=== PATIENT | male | born 1995 | race Hispanic/Latino ===

== ENCOUNTER 2021-09-12 09:09 | Emergency (ER) | payer OTHER, SELFPAY ==
--- NOTE | ~2021-09-12 | XR_ITS ---
EXAMINATION: XR abdomen/kub 1V EXAM DATE: 09/12/2021 10:35 INDICATION: Possible kidney stone. Back pain . TECHNIQUE: Frontal projection(s) of the abdomen for interpretation. There is no prior study for odell warren. FINDINGS: There is expected amount of colonic stool and gas. No small bowel dilation, nonobstructi ve bowel gas pattern. There are no suspicious calcifications identified. There is no organomegaly suspected. The bones are unremarkable. IMPRESSION: Unremarkable abdomen x-ray exam. Reviewed, dictated and finalized at location A. IFIED WELDER
[2021-09-12 09:21] VITALS: BP 119/72; PULSE 76; RESP 18; TEMP 36.3; O2SAT 99
--- NOTE | 2021-09-12 10:12 | ED.BACK ---
HPI - Back Pain/Injury General Chief Complaint: Back Pain/Injury Stated Complaint: Back Pain Time Seen by Provider: 09/12/21 10:12 Source: patient and RN notes reviewed Mode of arrival: ambulatory Limitations: no limitations History of Present Illness HPI Narrative: 26-year-old male presents concern for left sided mid back pain. Reports the pain is consistently a 3/10. Reports the pain comes in waves and gets up to an 8/10. Denies any exacerbating or relieving factors. Denies injury or trauma. He denies any weakness in any extremity, perianal anesthesia, loss of bowel or bladder function. MD elicited complaint: back pain Related Data Home Medications Medication Instructions Recorded Confirmed acetaminophen-codeine 1 tablet PO DAILY PRN 09/12/21 09/12/21 chlorhexidine gluconate 0.12 applic PO DAILY PRN 09/12/21 09/12/21 ibuprofen 600 mg PO DAILY PRN 09/12/21 09/12/21 Allergies Allergy/AdvReac Type Severity Reaction Status Date / Time No Known Allergies Allergy Verified 09/12/21 10:00 Review of Systems Review of Systems: CONSTITUTIONAL: Denies malaise, chills, sweats, or fever. CARDIOVASCULAR: Denies chest pain, palpitations, or edema. RESPIRATORY: Denies cough or dyspnea. GASTROINTESTINAL: Denies abdominal pain, nausea, vomiting, diarrhea, bloody, or mucous stools. GENITOURINARY: Denies dysuria or hematuria. SKIN: Denies rash or itching. MUSCULOSKELETAL: Reports left mid back pain. Denies myalgia. NEUROLOGIC: Denies numbness, weakness, or headache. All systems reviewed & are unremarkable except as noted in HPI and below PMFSH Comments At time of signature, agree with nursing past medical, surgical, social and family history. There is no relevant family history pertinent to the presenting complaint Exam Narrative: GENERAL: Well-appearing, well-nourished, and in no acute distress. HEAD: Normocephalic, atraumatic. EYES: PERRLA and EOMI. NECK: Supple. No lymphadenopathy. CHEST: Clear to auscultation. No respiratory distress. HEART: Regular rate and rhythm. Distal pulses palpable and equal, cap refill <3 seconds ABDOMEN: Soft, nontender, nondistended, normal active bowel sounds, no palpable or pulsatile masses. No CVA tenderness MUSCULOSKELETAL: Normal range of motion and strength in all extremities; 5/5 strength with hip flexion and extension, dorsiflexion and extension, knee flexion and extension, plantar flexion and extension. Normal sensation in dermatomal distributions with sensitivity to light touch and pain. No midline back tenderness to palpation. No paraspinal tenderness. Transfers sitting to standing. SKIN: Warm, dry, no rash. No ecchymosis, erythema, open wounds to back. NEURO: No focal deficits. Alert and oriented x3. Reflexes intact. Normal gait. PSYCH: Normal mood and affect Course Course Emergency Course: Patient is aware of diagnosis, understands and agrees to treatment plan. Anticipatory guidance given. Patient agrees to follow-up as directed and is aware of reasons to seek care at the emergency department. Portions of this record may have been created with voice recognition software Vital Signs Vital signs: Vital Signs Temperature 97.3 F L 09/12/21 09:21 Pulse Rate 76 09/12/21 09:21 Respiratory Rate 18 09/12/21 09:21 Blood Pressure 119/72 09/12/21 09:21 Pulse Oximetry 99 09/12/21 09:21 Temperature 97.3 F L 09/12/21 09:21 Pulse Rate 76 09/12/21 09:21 Respiratory Rate 18 09/12/21 09:21 Blood Pressure 119/72 09/12/21 09:21 Pulse Oximetry 99 09/12/21 09:21 Reviewed. MDM - Back Pain/Injury MDM Narrative Medical decision making narrative: No risk factors or findings concerning for epidural abscess, diskitis, vertebral osteomyelitis, cord compression, cauda equina, vertebral fracture or bone malignancy, AAA, or pyelonephritis. Patient instructed to consider further imaging and workup through their primary care physician as an outpatient if symptoms persist. I
== END 2021-09-12 11:05 | disposition home or self-care (01) ==
PROVIDERS: Emergency Provider Nurse Practitioner
DX: R10.9 Unspecified abdominal pain (principal); R31.9 Hematuria, unspecified
CPT/HCPCS: 74018; 81003; 99203; G0463